=== PATIENT | male | born 1985 ===

== ENCOUNTER 2020-06-23 18:00 | Outpatient (CLI) | payer OTHER | END 2020-06-23 18:01 | disposition home or self-care (01) | LOC: SLEEPLAB 18:00 | PROVIDERS: ATTEND Physician Assistant | DX: G47.33 Obstructive sleep apnea (adult) (pediatric) (principal); E66.9 Obesity, unspecified; R53.83 Other fatigue; R06.83 Snoring; Z68.43 Body mass index [BMI] 50.0-59.9, adult | CPT/HCPCS: 95806 ==

== ENCOUNTER 2020-08-12 19:00 | Outpatient (CLI) | payer OTHER | END 2020-08-12 19:01 | disposition home or self-care (01) | LOC: SLEEPLAB 19:00 | PROVIDERS: ATTEND Physician Assistant | DX: G47.33 Obstructive sleep apnea (adult) (pediatric) (principal); R53.83 Other fatigue; E66.9 Obesity, unspecified; R06.83 Snoring; G47.10 Hypersomnia, unspecified; Z68.43 Body mass index [BMI] 50.0-59.9, adult | CPT/HCPCS: 95811 ==